=== PATIENT | female | born 1995 | race Caucasian/White ===

== ENCOUNTER 2017-03-31 13:37 | Outpatient (CLI) | payer OTHER ==
[~2017-03-31] VITALS: Ht 157.5 cm; Wt 53.1 kg
[2017-03-31 13:50] VITALS: BP 115/78
== END 2017-03-31 17:38 | disposition home or self-care (01) ==
LOC: LDOP 13:37
PROVIDERS: ATTEND Obstetrics & Gynecology
DX: O42.912 Preterm premature rupture of membranes, unspecified as to length of time between rupture and onset of labor, second trimester (principal); O26.892 Other specified pregnancy related conditions, second trimester; O99.512 Diseases of the respiratory system complicating pregnancy, second trimester; R10.9 Unspecified abdominal pain; J45.909 Unspecified asthma, uncomplicated; Z3A.24 24 weeks gestation of pregnancy
CPT/HCPCS: 59025; 76819; 81001; 87086; 87210; 87808; 89060; 99201; G0463; Q0114

== ENCOUNTER 2017-04-15 01:01 | Outpatient (CLI) | payer OTHER ==
[~2017-04-15] VITALS: Ht 157.5 cm; Wt 58.0 kg
== END 2017-04-15 01:40 | disposition home or self-care (01) ==
LOC: LDOP 01:01
PROVIDERS: ATTEND Obstetrics & Gynecology
DX: O36.8120 Decreased fetal movements, second trimester, not applicable or unspecified (principal); O99.512 Diseases of the respiratory system complicating pregnancy, second trimester; J45.909 Unspecified asthma, uncomplicated; Z3A.26 26 weeks gestation of pregnancy
CPT/HCPCS: 59025; 99211; G0463

== ENCOUNTER 2017-05-19 23:45 | Outpatient (CLI) | payer OTHER ==
[~2017-05-19] VITALS: Ht 157.5 cm; Wt 58.2 kg
[2017-05-19 23:52] VITALS: BP 129/85
== END 2017-05-20 00:45 | disposition home or self-care (01) ==
LOC: LDOP 23:45
PROVIDERS: ATTEND Obstetrics & Gynecology
DX: O26.893 Other specified pregnancy related conditions, third trimester (principal); O42.913 Preterm premature rupture of membranes, unspecified as to length of time between rupture and onset of labor, third trimester; O46.93 Antepartum hemorrhage, unspecified, third trimester; O99.513 Diseases of the respiratory system complicating pregnancy, third trimester; J45.909 Unspecified asthma, uncomplicated; M54.9 Dorsalgia, unspecified; Z3A.31 31 weeks gestation of pregnancy
CPT/HCPCS: 59025; 81001; 87086; 99211; G0463

== ENCOUNTER 2017-05-20 20:26 | Outpatient (CLI) | payer OTHER ==
[2017-05-20 20:50] VITALS: BP 112/75
[2017-05-20 21:29] LABS: HEMATOCRIT 33.2 % (34.6-47.8); HEMOGLOBIN 11.3 g/dL (11.7-16.4); WHITE BLOOD COUNT 8.9 x10^3/uL (4.5-13.2)
[2017-05-20 21:38] LABS: ASPARTATE AMINO TRANSFERASE 10 U/L (15-37); BLOOD UREA NITROGEN 7 mg/dL (7-18)
== END 2017-05-20 22:51 | disposition home or self-care (01) ==
LOC: LDOP 20:26
PROVIDERS: ATTEND Obstetrics & Gynecology
DX: O26.893 Other specified pregnancy related conditions, third trimester (principal); M54.9 Dorsalgia, unspecified; R10.9 Unspecified abdominal pain; Z3A.31 31 weeks gestation of pregnancy
CPT/HCPCS: 36415; 59025; 76805; 80053; 81001; 85025; 87086; 89060; 99211; G0463; Q0114

== ENCOUNTER 2017-06-16 20:05 | Outpatient (CLI) | payer OTHER, MEDICAID ==
[~2017-06-16] VITALS: Ht 157.5 cm; Wt 63.0 kg
[2017-06-16 20:44] LABS: AMNI OBC PASS; AMNISURE NEGATIVE (NEGATIVE)
== END 2017-06-16 22:00 | disposition home or self-care (01) ==
LOC: LDOP 20:05
PROVIDERS: ATTEND Obstetrics & Gynecology
DX: O42.913 Preterm premature rupture of membranes, unspecified as to length of time between rupture and onset of labor, third trimester (principal); O99.513 Diseases of the respiratory system complicating pregnancy, third trimester; J45.909 Unspecified asthma, uncomplicated; Z3A.35 35 weeks gestation of pregnancy
CPT/HCPCS: 59025; 76815; 81001; 84112; 99211; G0463

== ENCOUNTER 2017-07-17 23:00 | Outpatient (CLI) | payer OTHER, MEDICAID ==
[~2017-07-17] VITALS: Ht 157.5 cm; Wt 64.1 kg
[2017-07-17 23:38] VITALS: BP 129/87
== END 2017-07-18 00:12 | disposition home or self-care (01) ==
LOC: LDOP 23:00
PROVIDERS: ATTEND Obstetrics & Gynecology
DX: O42.92 Full-term premature rupture of membranes, unspecified as to length of time between rupture and onset of labor (principal); O99.513 Diseases of the respiratory system complicating pregnancy, third trimester; O48.0 Post-term pregnancy; J45.909 Unspecified asthma, uncomplicated; Z3A.40 40 weeks gestation of pregnancy
CPT/HCPCS: 59025; 81001; 87086; 89060; 99211; G0463; Q0114

== ENCOUNTER 2017-07-22 18:10 | Inpatient (IN) | payer OTHER, MEDICAID ==
[~2017-07-22] VITALS: Ht 157.5 cm; Wt 64.1 kg
[2017-07-22] MEDS ORDERED: ACET650S21 PO (18:34)
[2017-07-22 18:54] VITALS: BP 128/87
[2017-07-22] MEDS ORDERED: OXYTOCIN 30U/ 0.9% NaCL 500ML 500 ML IV PRN (19:05)
[2017-07-22] MEDS ORDERED: OXYTOCIN 30U/ 0.9% NaCL 500ML 500 ML IV ONE (19:05)
[2017-07-22] MEDS ORDERED: FENTANYL PF 100 MCG/2ML ONE (19:06)
[2017-07-22] MEDS: LACTATED RINGERS 1,000 ML IV SCH (19:19)
[2017-07-22] MEDS ORDERED: METOCLOPRAMIDE 5 MG/ML, 2ML IVPush PRN (19:30)
[2017-07-22] MEDS ORDERED: SODIUM CITRATE/CITRIC ACID 30 ML UDC PO PRN (19:30)
[2017-07-22] MEDS ORDERED: FENTANYL PF 100 MCG/2ML IVPush PRN (19:30)
[2017-07-22] MEDS ORDERED: ONDANSETRON 2MG/ML, 2ML IVPush PRN (19:30)
[2017-07-22] MEDS ORDERED: FENTANYL PF 100 MCG/2ML IV PRN (19:30)
[2017-07-22 19:31] LABS: HEMATOCRIT 34.4 % (34.6-47.8); HEMOGLOBIN 11.6 g/dL (11.7-16.4); WHITE BLOOD COUNT 12.8 x10^3/uL (4.5-13.2)
[2017-07-22] MEDS ORDERED: BUPIVACAINE/PF 0.25% ONE (19:41)
[2017-07-22] MEDS ORDERED: FENTANYL/BUPIV./NS/PF 250 ML EPIDCONT ONE (19:41)
[2017-07-22] MEDS ORDERED: LACTATED RINGERS 1,000 ML IV SCH (20:14)
[2017-07-22] MEDS ORDERED: FENTANYL/BUPIV./NS/PF 250 ML EPIDCONT SCH (20:14)
[2017-07-22] MEDS: D5%-LACTATED RINGERS 1,000 ML IV SCH (20:26)
[2017-07-22] MEDS ORDERED: LACTATED RINGERS 1,000 ML IVBOLUS PRN (20:30)
[2017-07-22 20:39] VITALS: BP 119/73
[2017-07-22] MEDS ORDERED: ONDANSETRON 2MG/ML, 2ML ONE (23:27)
[2017-07-22] MEDS ORDERED: MISOPROSTOL 200 MCG TABLET ONE (23:28)
[2017-07-22] MEDS ORDERED: LIDOCAINE 1%, 20ML ONE (23:28)
[2017-07-23] MEDS ORDERED: OXYTOCIN 30U/ 0.9% NaCL 500ML 500 ML ONE (01:14)
[2017-07-23] MEDS: OXYTOCIN 30U/ 0.9% NaCL 500ML 500 ML IV SCH ×3 (01:36→21:36)
[2017-07-23] MEDS ORDERED: ACETAMINOPHEN 325 MG TABLET ONE (01:49)
[2017-07-23] MEDS ORDERED: DIPH,PERTUSS(ACELL),TET VAC/PF NC IM-VACC PRN (02:00)
[2017-07-23] MEDS ORDERED: RHOGAM FROM BLOOD BANK 1 NOTE EA IM/IV ONE (02:00)
[2017-07-23] MEDS ORDERED: OXYcodone IR 5MG TABLET PO PRN (02:00)
[2017-07-23] MEDS ORDERED: CALCIUM CARBONATE 500 MG TAB.CHEW PO PRN (02:00)
[2017-07-23] MEDS ORDERED: MISOPROSTOL 200 MCG TABLET PR PRN (02:00)
[2017-07-23] MEDS ORDERED: ACETAMINOPHEN 325 MG TABLET PO ONE (02:00)
[2017-07-23] MEDS ORDERED: MAGNESIUM HYDROXIDE 8%, 30ML UDC PO PRN (02:00)
[2017-07-23] MEDS ORDERED: ONDANSETRON 2MG/ML, 2ML IV PRN (02:00)
[2017-07-23] MEDS ORDERED: MEASLES,MUMPS&RUBELLA VACC/PF 0.5 ML SQ PRN (02:00)
[2017-07-23] MEDS: LACTATED RINGERS 1,000 ML IV SCH (03:05)
[2017-07-23] MEDS: D5%-LACTATED RINGERS 1,000 ML IV SCH (03:05)
[2017-07-23 03:55] VITALS: BP 102/66
[2017-07-23 08:06] VITALS: BP 103/70
[2017-07-23] MEDS: IBUPROFEN 600 MG TABLET PO PRN ×2 (08:21→15:21)
[2017-07-23] MEDS: DOCUSATE 100 MG CAPSULE PO PRN ×2 (08:21→20:34)
[2017-07-23] MEDS: PRENATAL VIT/IRON/FA 1 EACH TABLET PO SCH (09:00)
[2017-07-23 09:16] LABS: HEMATOCRIT 30.1 % (34.6-47.8); WHITE BLOOD COUNT 16.6 x10^3/uL (4.5-13.2)
[2017-07-23 12:15] VITALS: BP 105/68
[2017-07-23] MEDS ORDERED: LORATADINE 10 MG TABLET PO PRN (13:00)
[2017-07-23 17:06] VITALS: BP 104/62
[2017-07-23] MEDS: OXYcodone/APAP 5/325MG TABLET PO PRN (20:34)
[2017-07-23 20:35] VITALS: BP 114/78
[2017-07-23 23:55] VITALS: BP 121/70
[2017-07-24] MEDS: OXYcodone/APAP 5/325MG TABLET PO PRN (01:35)
[2017-07-24] MEDS: IBUPROFEN 600 MG TABLET PO PRN ×2 (01:35→14:22)
[2017-07-24] MEDS: OXYTOCIN 30U/ 0.9% NaCL 500ML 500 ML IV SCH (07:36)
[2017-07-24 08:00] VITALS: BP 111/76
[2017-07-24] MEDS: DOCUSATE 100 MG CAPSULE PO PRN (10:45)
[2017-07-24] MEDS: PRENATAL VIT/IRON/FA 1 EACH TABLET PO SCH (10:45)
[2017-07-24] MEDS ORDERED: IBUP-1223 PO (12:55)
== END 2017-07-24 14:10 | disposition home or self-care (01) | DRG 775 ==
LOC: LDOP 18:10 → LDIP 19:07 → 2NW 07-23 03:21
PROVIDERS: ADMIT Obstetrics & Gynecology; ATTEND Obstetrics & Gynecology
PROC: 0KQM0ZZ Repair Perineum Muscle, Open Approach (ICD-10-PCS; principal; 2017-07-22)
PROC: 10E0XZZ Delivery of Products of Conception, External Approach (ICD-10-PCS; 2017-07-22)
PROC: 3E0R3BZ Introduction of Anesthetic Agent into Spinal Canal, Percutaneous Approach (ICD-10-PCS; 2017-07-22)
PROC: 00HU33Z Insertion of Infusion Device into Spinal Canal, Percutaneous Approach (ICD-10-PCS; 2017-07-22)
DX: O48.0 Post-term pregnancy (principal); O99.344 Other mental disorders complicating childbirth; F32.9 Major depressive disorder, single episode, unspecified; J45.909 Unspecified asthma, uncomplicated; O70.1 Second degree perineal laceration during delivery; G43.909 Migraine, unspecified, not intractable, without status migrainosus; O99.52 Diseases of the respiratory system complicating childbirth; Z37.0 Single live birth; Z3A.41 41 weeks gestation of pregnancy
CPT/HCPCS: 36415; 82803; 85025; 86850; 86900; J2405; J2590; J7120; J7121